=== PATIENT | female | born 1950 | race Caucasian/White ===

== ENCOUNTER 2021-04-13 13:44 | Outpatient (CLI) | payer MEDICARE | END 2021-04-13 13:45 | disposition home or self-care (01) | LOC: CSHMRI 13:44 | PROVIDERS: ATTEND Family Medicine | DX: M51.16 Intervertebral disc disorders with radiculopathy, lumbar region (principal); Q76.49 Other congenital malformations of spine, not associated with scoliosis; M48.061 Spinal stenosis, lumbar region without neurogenic claudication | CPT/HCPCS: 72100; 72148 ==

== ENCOUNTER 2023-03-29 14:43 | Outpatient (CLI) | payer OTHER ==
[~2023-03-29 14:43] MED LIST: Magnevist 469MG/ML 20 ML VIAL ONE
== END 2023-03-29 14:44 | disposition home or self-care (01) ==
LOC: CSHMRI 14:43
PROVIDERS: ATTEND Psychiatry & Neurology Neurology
DX: R41.3 Other amnesia (principal); I67.89 Other cerebrovascular disease; J32.9 Chronic sinusitis, unspecified
CPT/HCPCS: 70553; 82565; A9579